=== PATIENT | male | born 1955 | race Caucasian/White ===

== ENCOUNTER 2018-12-18 15:38 | Inpatient (IN) | payer OTHER ==
[~2018-12-18] VITALS: Ht 172.7 cm; Wt 70.9 kg
[2018-12-18] MEDS ORDERED: LORazepam 2 MG/ML, 1ML ONE ×2 (15:44→18:10)
--- NOTE | 2018-12-18 15:49 | NUR ---
BIB [facility] FOR C/O ETOH WITHDRAWAL. LAST DRINK AT [place]. THIS AM WOKE UP W/ CP AND FULL BODY TREMORS. MONITORS APPLIED. PT PANTS SOILED W/ URINE AND STOOL. PT NOTED TO HAVE REDDENED AND EXCORIATED PERINEAL AREA. SHYLA CARE PERFORMED AND BARRIER CREAM APPLIED. ERP NOTIFIED. PT REPOSITIONED ON [facility]. WARM BLANKET PROVIDED.
[2018-12-18] MEDS ORDERED: LORazepam 2 MG/ML, 1ML IVPush ONE (16:00)
[2018-12-18] MEDS ORDERED: LORazepam 2 MG/ML, 1ML IVPush PRN (16:00)
[2018-12-18] MEDS ORDERED: SODIUM CHLORIDE 0.9% 1,000ML IVBOLUS ONE (16:00)
[2018-12-18] MEDS ORDERED: SODIUM CHLORIDE FLUSH 10ML SYR IVF ONE (16:00)
[2018-12-18] MEDS ORDERED: CEFAZOLIN PMX 1GM/50ML 50 ML IV ONE (16:00)
[2018-12-18] MEDS ORDERED: PLEASE ENTER HEIGHT AND WEIGHT MC SCH (16:00)
[2018-12-18] MEDS ORDERED: PLEASE ENTER ALLERGIES MC SCH (16:00)
[2018-12-18] MEDS ORDERED: CLONIDINE PO (16:02)
[2018-12-18] MEDS ORDERED: STATIN MED PEG (16:02)
[2018-12-18] MEDS ORDERED: METOPROL PO (16:02)
[2018-12-18] MEDS ORDERED: ASPI-515 PO (16:02)
[2018-12-18] MEDS ORDERED: CEFAZOLIN PMX 1GM/50ML 50 ML ONE (16:16)
--- NOTE | 2018-12-18 16:19 | NUR ---
YELLOW SLIP SENT TO PHARMACY FOR MEDICATIONS.
[2018-12-18 16:27] LABS: INTERNATIONAL NORMALIZED RATIO 1.02 (0.93-1.1); PROTHROMBIN TIME 10.7 Seconds (9.6-11.5)
--- NOTE | 2018-12-18 16:27 | NUR ---
PT ATTEMPTED TO PROVIDE UA SAMPLE AND WAS UNABLE TO DO SO.
[2018-12-18 16:30] LABS: ALANINE AMINOTRANSFERASE 36 U/L (12-78); ALBUMIN 3.1 g/dL (3.4-5.0); ANION GAP 10 mmol/L (5-15); CHLORIDE 112 mmol/L (98-107)
[2018-12-18] MEDS ORDERED: MAGNESIUM SULFATE 1 GM, THIAMINE 100 MG, FOLIC ACID 1 MG, MVI ADULT 10 ML in SODIUM CHL... IV ONE (16:30)
[2018-12-18 16:32] LABS: ALKALINE PHOSPHATASE 160 U/L (45-117); BILIRUBIN,TOTAL 0.8 mg/dL (0.2-1.0); CREATININE 1.13 mg/dL (0.7-1.3); TOTAL PROTEIN 6.1 g/dL (6.4-8.2)
[2018-12-18 16:34] LABS: ACETONE, SERUM Negative (Negative)
--- NOTE | 2018-12-18 16:43 | NUR ---
PT LESS SHAKY. RESTING ON [facility] [employer].
[2018-12-18] MEDS: ERYTHROMYCIN OPHTH 0.5%, 1GM EACHEYE SCH ×2 (17:32→23:26)
[2018-12-18] MEDS: KETOCONAZOLE CRM 2%, 15GM TP SCH (17:32)
--- NOTE | 2018-12-18 17:33 | NUR ---
PT RESTING ON [place]. [place]SE[place]. VSS. UA COLLECTED, LABELED, AND SENT TO LAB.
[2018-12-18 17:54] LABS: MICROSCOPIC AUTO
[2018-12-18 17:58] LABS: CULTURE INDICATED? NO
[2018-12-18 18:03] LABS: AMPHETAMINE SCREEN, URINE Negative (Negative); BARBITURATE SCREEN, URINE Negative (Negative); BENZODIAZEPINE SCREEN, URINE Positive (Negative); CANNABINOID SCREEN, URINE Negative (Negative); COCAINE SCREEN, URINE Negative (Negative); METHADONE SCREEN, URINE Negative (Negative); OPIATE SCREEN, URINE Negative (Negative)
[2018-12-18 18:40] LABS: MEAN CORPUSCULAR HEMOGLOBIN 33.6 pg (27.5-34.5); MEAN CORPUSCULAR HGB CONC 34.9 g/dL (33.2-36.2); MEAN CORPUSCULAR VOLUME 96.2 fL (81-97); RED BLOOD COUNT 4.09 x10^6/uL (4.38-5.82)
[2018-12-18 18:45] LABS: BASOPHILS # (AUTO) 0.01 x10^3/uL (0-0.1); BASOPHILS % (AUTO) 0 % (0-1); EOSINOPHILS % (AUTO) 0 % (1-7); LYMPHOCYTES % (AUTO) 5 % (22-44); MD SCAN; MEAN PLATELET VOLUME 7.2 fL (7.4-10.4); MONOCYTES # (AUTO) 0.58 x10^3/uL (0.2-0.8); MONOCYTES % (AUTO) 15 % (2-9); NEUTROPHILS % (AUTO) 80 % (42-75)
[2018-12-18] MEDS ORDERED: METOPROLOL 1 MG/ML, 5ML ONE (18:52)
--- NOTE | 2018-12-18 18:54 | NUR ---
PT HR NOTED TO INCREASE TO 127-130. ERP NOTIFIED. NEW ORDERS FOR METOPROLOL. IF HR DECREASES RECHECK EKG.
[2018-12-18 18:59] LABS: PLATELET COUNT 46 x10^3/uL (130-400)
[2018-12-18 19:00] LABS: HEMOGRAM NOTE RECHECKED
[2018-12-18] MEDS ORDERED: METOPROLOL 1 MG/ML, 5ML IVPush ONE (19:00)
--- NOTE | 2018-12-18 19:16 | NUR ---
REPORT GIVEN TO NIKOLAI TELLES RN.
--- NOTE | 2018-12-18 20:24 | NUR ---
REPORT GIVEN TO MANE OLSON
[2018-12-18] MEDS ORDERED: ONDANSETRON 2MG/ML, 2ML IVPush PRN (20:30)
[2018-12-18] MEDS ORDERED: HALOPERIDOL 5 MG/ML IVPush PRN (20:30)
[2018-12-18] MEDS ORDERED: POLYETHYLENE GLYCOL 17 GM PACKET PO PRN (20:30)
[2018-12-18] MEDS ORDERED: CEFTRIAXONE PMX 2GM/50ML 50 ML IV SCH (21:30)
[2018-12-18] MEDS: DOXYCYCLINE 100MG TABLET PO SCH (23:12)
[2018-12-18] MEDS: LORazepam 1MG TABLET PO PRN (23:12)
[2018-12-18] MEDS: METOPROLOL TARTRATE 25 MG TABLET PO SCH (23:12)
[2018-12-18] MEDS: NYSTATIN TOPICAL POWDER 15GM TP SCH (23:26)
[2018-12-19] MEDS: LORazepam 1MG TABLET PO PRN ×5 (01:10→10:55)
[2018-12-19 01:28] VITALS: BP 146/93
[2018-12-19] MEDS: KETOCONAZOLE MC SCH ×2 (05:30→11:42)
[2018-12-19] MEDS: ERYTHROMYCIN MC SCH ×2 (05:30→11:42)
[2018-12-19] MEDS: METOPROLOL TARTRATE 25 MG TABLET PO SCH (05:36)
[2018-12-19] MEDS ORDERED: SODIUM CHLORIDE 0.9% 1,000 ML IV SCH (07:30)
[2018-12-19] MEDS ORDERED: POTASSIUM CHLORIDE 20 MEQ, MAGNESIUM SULFATE 1 GM, THIAMINE 200 MG, FOLIC ACID 1 MG, MV... IV SCH (07:30)
[2018-12-19 07:54] LABS: ALANINE AMINOTRANSFERASE 36 U/L (12-78); ANION GAP 6 mmol/L (5-15); CALCIUM 8.3 mg/dL (8.5-10.1); CHLORIDE 109 mmol/L (98-107); CREATININE 0.69 mg/dL (0.7-1.3)
[2018-12-19 07:56] LABS: ALKALINE PHOSPHATASE 150 U/L (45-117); BILIRUBIN,TOTAL 1.2 mg/dL (0.2-1.0); TOTAL PROTEIN 6.1 g/dL (6.4-8.2)
[2018-12-19 07:59] LABS: MEAN CORPUSCULAR HEMOGLOBIN 32.8 pg (27.5-34.5); MEAN CORPUSCULAR HGB CONC 34.1 g/dL (33.2-36.2); MEAN CORPUSCULAR VOLUME 96.2 fL (81-97); RED BLOOD COUNT 4.16 x10^6/uL (4.38-5.82); RED CELL DISTRIBUTION WIDTH 14.2 % (9.4-14.8)
[2018-12-19 08:00] VITALS: BP 137/97
[2018-12-19] MEDS ORDERED: LORazepam 0.5MG TABLET PO PRN (08:00)
[2018-12-19] MEDS ORDERED: LORazepam 1MG TABLET PO PRN ×3 (08:00)
[2018-12-19 08:26] LABS: BASOPHILS # (AUTO) 0.02 x10^3/uL (0-0.1); BASOPHILS % (AUTO) 1 % (0-1); EOSINOPHILS # (AUTO) 0.03 x10^3/uL (0-0.4); EOSINOPHILS % (AUTO) 1 % (1-7); LYMPHOCYTES % (AUTO) 26 % (22-44); MD SCAN; MEAN PLATELET VOLUME 7.6 fL (7.4-10.4); MONOCYTES # (AUTO) 0.47 x10^3/uL (0.2-0.8); MONOCYTES % (AUTO) 17 % (2-9); NEUTROPHILS # (AUTO) 1.52 x10^3/uL (1.8-6.8); NEUTROPHILS % (AUTO) 56 % (42-75)
[2018-12-19 08:29] LABS: PLATELET COUNT 44 x10^3/uL (130-400)
[2018-12-19] MEDS: DOXYCYCLINE 100MG TABLET PO SCH (08:42)
[2018-12-19] MEDS: ERYTHROMYCIN OPHTH 0.5%, 1GM EACHEYE SCH (08:51)
[2018-12-19] MEDS: NYSTATIN TOPICAL POWDER 15GM TP SCH ×3 (08:51→21:48)
[2018-12-19] MEDS ORDERED: CHLORDIAZEPOXIDE 10 MG CAPSULE PO SCH (09:00)
[2018-12-19] MEDS: KETOCONAZOLE CRM 2%, 15GM TP SCH (11:00)
[2018-12-19] MEDS: LORazepam 2 MG/ML, 1ML IV PRN ×5 (12:45→14:36)
[2018-12-19] MEDS ORDERED: LORazepam 2 MG/ML, 1ML ONE ×2 (13:00→14:52)
[2018-12-19] MEDS ORDERED: LORazepam 2 MG/ML, 1ML IV PRN ×3 (13:00)
[2018-12-19] MEDS ORDERED: SODIUM CHLORIDE 0.9% IV ONE (15:00)
[2018-12-19] MEDS ORDERED: PHENOBARBITAL ETOH DETOX PER PHARMACY MC PRN (15:00)
[2018-12-19] MEDS ORDERED: LORazepam 2 MG/ML, 1ML IVPush ONE ×2 (15:00→15:30)
[2018-12-19] MEDS ORDERED: PHENOBARBITAL SODIUM IV ONE (15:00)
[2018-12-19] MEDS ORDERED: ADENOSINE 6 MG/2 ML ONE (15:48)
[2018-12-19] MEDS ORDERED: ADENOSINE 6 MG/2 ML IVPush ONE (15:50)
[2018-12-19] MEDS ORDERED: DEXTROSE 50%, 50ML SYRINGE IVPush PRN ×2 (16:00→20:00)
[2018-12-19] MEDS ORDERED: GLUCAGON 1 MG IM PRN ×2 (16:00→20:00)
[2018-12-19] MEDS ORDERED: DEXTROSE 4 GM TAB.CHEW PO PRN ×2 (16:00→20:00)
[2018-12-19] MEDS: SODIUM CHLORIDE 0.9% 1,000 ML IV SCH ×2 (16:03→20:05)
[2018-12-19] MEDS: PIPERACILLIN/TAZO/PMX 3.375GM 50 ML IV SCH ×2 (16:03→21:13)
[2018-12-19 16:11] LABS: ALBUMIN 2.7 g/dL (3.4-5.0); ANION GAP 8 mmol/L (5-15); CHLORIDE 110 mmol/L (98-107); CREATININE 0.76 mg/dL (0.7-1.3)
[2018-12-19 16:15] LABS: ALKALINE PHOSPHATASE 129 U/L (45-117); TROPONIN I 0.016 ng/mL (0.000-0.045)
[2018-12-19 16:27] LABS: MD YES; MEAN CORPUSCULAR HEMOGLOBIN 33.4 pg (27.5-34.5); MEAN CORPUSCULAR HGB CONC 34.8 g/dL (33.2-36.2); MEAN CORPUSCULAR VOLUME 96.1 fL (81-97); MEAN PLATELET VOLUME 7.9 fL (7.4-10.4); RED BLOOD COUNT 4.02 x10^6/uL (4.38-5.82); RED CELL DISTRIBUTION WIDTH 13.9 % (9.4-14.8)
[2018-12-19 16:32] LABS: PLATELET COUNT 46 x10^3/uL (130-400)
[2018-12-19 17:16] LABS: BAND#(MANUAL) 0.19 x10^3/uL; BANDS%(MANUAL) 5 % (0-7); EOS#(MANUAL) 0.04 x10^3/uL (0.0-0.4); EOS% (MANUAL) 1 % (1-7); LYMPHS% (MANUAL) 8 % (22-44); MONOS#(MANUAL) 0.38 x10^3/uL (0.3-2.7); MONOS% (MANUAL) 10 % (2-9); SEG#(MANUAL) 2.89 x10^3/uL (1.8-6.8); SEGS% (MANUAL) 76 % (42-75)
[2018-12-19 17:19] LABS: <PLATELET ESTIMATE> DECREASED; <RBC MORPHOLOGY> NORMAL
[2018-12-19 17:20] LABS: <PLT MORPHOLOGY> NORMAL PLT MORPH
[2018-12-19 20:09] LABS: CULTURE INDICATED? NO; MICROSCOPIC AUTO
[2018-12-19] MEDS: INSULIN LISPRO 100 UNITS/ML, PEN SQ-INSULIN SCH (21:00)
[2018-12-19] MEDS ORDERED: SODIUM CHLORIDE FLUSH 10ML SYR IVF SCH (21:00)
[2018-12-19] MEDS: PHENOBARBITAL SODIUM 65 MG/ML, 1ML IM SCH (21:17)
[2018-12-19] MEDS: SODIUM CHLORIDE FLUSH 10ML SYR IVF SCH (21:48)
[2018-12-19] MEDS: hydrALAzine 20 MG/ML, 1ML IVPush PRN (23:53)
[2018-12-20] MEDS: DEXMEDETOMIDINE 200 MCG in SODIUM CHLORIDE 0.9% 48 ML IV PRN ×5 (00:22→20:48)
[2018-12-20] MEDS: PIPERACILLIN/TAZO/PMX 3.375GM 50 ML IV SCH ×4 (02:28→20:15)
[2018-12-20] MEDS: INSULIN LISPRO 100 UNITS/ML, PEN SQ-INSULIN SCH ×2 (03:00→09:01)
[2018-12-20 04:36] LABS: MEAN CORPUSCULAR HEMOGLOBIN 33.5 pg (27.5-34.5); MEAN CORPUSCULAR HGB CONC 34.5 g/dL (33.2-36.2); MEAN CORPUSCULAR VOLUME 97.1 fL (81-97); MEAN PLATELET VOLUME 7.9 fL (7.4-10.4); RED BLOOD COUNT 3.77 x10^6/uL (4.38-5.82); RED CELL DISTRIBUTION WIDTH 13.8 % (9.4-14.8)
[2018-12-20 04:44] LABS: ALBUMIN 2.6 g/dL (3.4-5.0); ANION GAP 9 mmol/L (5-15); CALCIUM 7.9 mg/dL (8.5-10.1); CHLORIDE 113 mmol/L (98-107)
[2018-12-20 04:47] LABS: ALANINE AMINOTRANSFERASE 32 U/L (12-78); ALKALINE PHOSPHATASE 112 U/L (45-117); BILIRUBIN,TOTAL 1.2 mg/dL (0.2-1.0); CREATININE 0.55 mg/dL (0.7-1.3); TOTAL PROTEIN 5.1 g/dL (6.4-8.2)
[2018-12-20 04:52] VITALS: BP 120/85
[2018-12-20 04:57] LABS: PLATELET COUNT 47 x10^3/uL (130-400)
[2018-12-20] MEDS: SODIUM CHLORIDE 0.9% 1,000 ML IV SCH ×2 (05:14→20:15)
[2018-12-20 05:43] LABS: BASOPHILS # (AUTO) 0.02 x10^3/uL (0-0.1); BASOPHILS % (AUTO) 1 % (0-1); EOSINOPHILS # (AUTO) 0.03 x10^3/uL (0-0.4); EOSINOPHILS % (AUTO) 1 % (1-7); LYMPHOCYTES # (AUTO) 0.63 x10^3/uL (1-3.4); LYMPHOCYTES % (AUTO) 22 % (22-44); MD SCAN; MONOCYTES % (AUTO) 14 % (2-9); NEUTROPHILS # (AUTO) 1.81 x10^3/uL (1.8-6.8); NEUTROPHILS % (AUTO) 63 % (42-75)
[2018-12-20] MEDS ORDERED: SODIUM CHLORIDE 0.9% 1,000 ML IV SCH (07:30)
[2018-12-20] MEDS ORDERED: POTASSIUM CHLORIDE 40 MEQ in SODIUM CHLORIDE 0.9% 500 ML IV ONE (08:00)
[2018-12-20] MEDS: PHENOBARBITAL SODIUM 65 MG/ML, 1ML IM SCH (08:48)
[2018-12-20] MEDS: SODIUM CHLORIDE FLUSH 10ML SYR IVF SCH ×2 (08:49→20:28)
[2018-12-20] MEDS: NYSTATIN TOPICAL POWDER 15GM TP SCH ×3 (09:02→20:28)
[2018-12-20] MEDS: MVI ADULT 10 ML, FOLIC ACID 1 MG in D5%-0.45% NACL 1,000 ML IV SCH (09:41)
[2018-12-20] MEDS: THIAMINE 100 MG in SODIUM CHLORIDE 0.9% 50 ML IV SCH (09:41)
--- NOTE | 2018-12-20 11:48 | NUR ---
TF GOAL: PROMOTE @ 75ML/HR
[2018-12-20] MEDS: hydrALAzine 20 MG/ML, 1ML IVPush PRN (13:53)
[2018-12-20] MEDS: PHENOBARBITAL 20 MG/5 ML ORAL SOL PO SCH (20:28)
[2018-12-20] MEDS ORDERED: ACETAMINOPHEN 325 MG TABLET ONE (22:59)
[2018-12-20] MEDS: ACETAMINOPHEN 325 MG TABLET PO PRN (23:00)
[2018-12-21] MEDS: DEXMEDETOMIDINE 200 MCG in SODIUM CHLORIDE 0.9% 48 ML IV PRN ×4 (01:56→19:54)
[2018-12-21] MEDS: PIPERACILLIN/TAZO/PMX 3.375GM 50 ML IV SCH (02:16)
[2018-12-21 04:12] VITALS: BP 122/78
[2018-12-21 04:27] LABS: MEAN CORPUSCULAR HGB CONC 35.3 g/dL (33.2-36.2); MEAN CORPUSCULAR VOLUME 96.1 fL (81-97); MEAN PLATELET VOLUME 7.4 fL (7.4-10.4); PLATELET COUNT 50 x10^3/uL (130-400); RED BLOOD COUNT 3.76 x10^6/uL (4.38-5.82); RED CELL DISTRIBUTION WIDTH 13.7 % (9.4-14.8)
[2018-12-21 04:35] LABS: ALANINE AMINOTRANSFERASE 34 U/L (12-78); ALBUMIN 2.5 g/dL (3.4-5.0); ANION GAP 6 mmol/L (5-15); CALCIUM 7.8 mg/dL (8.5-10.1); CHLORIDE 108 mmol/L (98-107)
[2018-12-21 04:38] LABS: ALKALINE PHOSPHATASE 112 U/L (45-117); BILIRUBIN,TOTAL 1.1 mg/dL (0.2-1.0); CREATININE 0.62 mg/dL (0.7-1.3)
[2018-12-21] MEDS: SODIUM CHLORIDE 0.9% 1,000 ML IV SCH ×2 (05:01→21:43)
[2018-12-21 05:05] LABS: BASOPHILS # (AUTO) 0.01 x10^3/uL (0-0.1); BASOPHILS % (AUTO) 1 % (0-1); EOSINOPHILS # (AUTO) 0.04 x10^3/uL (0-0.4); EOSINOPHILS % (AUTO) 2 % (1-7); LYMPHOCYTES # (AUTO) 0.52 x10^3/uL (1-3.4); LYMPHOCYTES % (AUTO) 22 % (22-44); MD SCAN; MONOCYTES # (AUTO) 0.33 x10^3/uL (0.2-0.8); MONOCYTES % (AUTO) 14 % (2-9); NEUTROPHILS # (AUTO) 1.47 x10^3/uL (1.8-6.8); NEUTROPHILS % (AUTO) 62 % (42-75)
[2018-12-21] MEDS: THIAMINE 100 MG in SODIUM CHLORIDE 0.9% 50 ML IV SCH (08:26)
[2018-12-21] MEDS: SODIUM CHLORIDE FLUSH 10ML SYR IVF SCH ×2 (08:26→21:43)
[2018-12-21] MEDS: PHENOBARBITAL 20 MG/5 ML ORAL SOL PO SCH ×2 (08:26→21:43)
[2018-12-21] MEDS: NYSTATIN TOPICAL POWDER 15GM TP SCH ×3 (08:27→21:43)
[2018-12-21] MEDS: MVI ADULT 10 ML, FOLIC ACID 1 MG in D5%-0.45% NACL 1,000 ML IV SCH (09:37)
[2018-12-21] MEDS ORDERED: MAGNESIUM SULFATE PMX 2GM/50ML 50 ML ONE (10:27)
[2018-12-21] MEDS ORDERED: POTASSIUM CHLORIDE 20 MEQ TAB.ER.PRT ONE (10:28)
[2018-12-21] MEDS: METOPROLOL TARTRATE 25 MG TABLET PO SCH ×2 (10:29→20:44)
[2018-12-21] MEDS ORDERED: MAGNESIUM SULFATE PMX 2GM/50ML 50 ML IV ONE (10:30)
[2018-12-21] MEDS: POTASSIUM CHLORIDE 20 MEQ TAB.ER.PRT PO SCH ×3 (10:30→21:44)
[2018-12-21] MEDS: AMPICILLIN/SULBACTAM 3 GM in SODIUM CHLORIDE 0.9% 100 ML IV SCH ×3 (12:26→23:23)
[2018-12-21] MEDS: ACETAMINOPHEN 325 MG TABLET PO PRN (14:28)
[2018-12-22] MEDS: DEXMEDETOMIDINE 200 MCG in SODIUM CHLORIDE 0.9% 48 ML IV PRN ×6 (00:50→22:25)
[2018-12-22 04:00] VITALS: BP 148/97
[2018-12-22 04:17] LABS: MEAN CORPUSCULAR HEMOGLOBIN 33.9 pg (27.5-34.5); MEAN CORPUSCULAR HGB CONC 34.4 g/dL (33.2-36.2); MEAN CORPUSCULAR VOLUME 98.4 fL (81-97); RED BLOOD COUNT 3.73 x10^6/uL (4.38-5.82)
[2018-12-22 04:23] LABS: ALBUMIN 2.6 g/dL (3.4-5.0); CALCIUM 7.7 mg/dL (8.5-10.1); CHLORIDE 112 mmol/L (98-107)
[2018-12-22 04:29] LABS: ALANINE AMINOTRANSFERASE 46 U/L (12-78); ALKALINE PHOSPHATASE 119 U/L (45-117); ANION GAP 8 mmol/L (5-15); BILIRUBIN,TOTAL 0.6 mg/dL (0.2-1.0); CREATININE 0.63 mg/dL (0.7-1.3); TOTAL PROTEIN 5.3 g/dL (6.4-8.2)
[2018-12-22 04:36] LABS: MEAN PLATELET VOLUME 7.4 fL (7.4-10.4); PLATELET COUNT 59 x10^3/uL (130-400)
[2018-12-22 04:37] LABS: MD YES
[2018-12-22 04:41] LABS: BAND#(MANUAL) 0.05 x10^3/uL; BANDS%(MANUAL) 3 % (0-7); LYMPH#(MANUAL) 0.51 x10^3/uL (1-3.4); LYMPHS% (MANUAL) 32 % (22-44); MONOS#(MANUAL) 0.18 x10^3/uL (0.3-2.7); MONOS% (MANUAL) 11 % (2-9); SEG#(MANUAL) 0.86 x10^3/uL (1.8-6.8); SEGS% (MANUAL) 54 % (42-75)
[2018-12-22 04:42] LABS: <PLATELET ESTIMATE> DECREASED; <PLT MORPHOLOGY> NORMAL PLT MORPH; <RBC MORPHOLOGY> NORMAL
[2018-12-22] MEDS: AMPICILLIN/SULBACTAM 3 GM in SODIUM CHLORIDE 0.9% 100 ML IV SCH ×4 (05:20→22:21)
[2018-12-22] MEDS: METOPROLOL TARTRATE 25 MG TABLET PO SCH ×2 (05:22→16:21)
[2018-12-22] MEDS: NYSTATIN TOPICAL POWDER 15GM TP SCH ×3 (07:27→20:01)
[2018-12-22] MEDS: PHENOBARBITAL 20 MG/5 ML ORAL SOL PO SCH ×2 (07:31→20:00)
[2018-12-22] MEDS: MAGNESIUM OXIDE 400 MG TABLET PO SCH (07:31)
[2018-12-22] MEDS: THIAMINE 100MG TABLET PO SCH (07:31)
[2018-12-22] MEDS: FOLIC ACID 1 MG TABLET PO SCH (07:32)
[2018-12-22] MEDS: SODIUM CHLORIDE FLUSH 10ML SYR IVF SCH ×2 (07:32→20:01)
[2018-12-22] MEDS ORDERED: FOLIC ACID 1 MG TABLET PO SCH (09:00)
[2018-12-22] MEDS ORDERED: CHLORDIAZEPOXIDE 25 MG CAPSULE ONE (09:52)
[2018-12-22] MEDS: CHLORDIAZEPOXIDE 25 MG CAPSULE PO SCH ×3 (10:10→20:01)
[2018-12-22] MEDS: SODIUM CHLORIDE 0.9% 1,000 ML IV SCH (13:26)
[2018-12-22] MEDS: ACETAMINOPHEN 325 MG TABLET PO PRN (20:00)
[2018-12-23] MEDS: SODIUM CHLORIDE 0.9% 1,000 ML IV SCH (03:25)
[2018-12-23 04:00] VITALS: BP 147/101
[2018-12-23 05:01] LABS: MEAN CORPUSCULAR HEMOGLOBIN 32.8 pg (27.5-34.5); MEAN CORPUSCULAR VOLUME 96.6 fL (81-97); MEAN PLATELET VOLUME 7.4 fL (7.4-10.4); PLATELET COUNT 69 x10^3/uL (130-400); RED BLOOD COUNT 4.21 x10^6/uL (4.38-5.82); RED CELL DISTRIBUTION WIDTH 13.6 % (9.4-14.8)
[2018-12-23 05:02] LABS: MD YES
[2018-12-23 05:04] LABS: ANION GAP 7 mmol/L (5-15); CALCIUM 8.5 mg/dL (8.5-10.1); CHLORIDE 109 mmol/L (98-107); CREATININE 0.67 mg/dL (0.7-1.3)
[2018-12-23] MEDS: ACETAMINOPHEN 325 MG TABLET PO PRN (05:32)
[2018-12-23] MEDS: AMPICILLIN/SULBACTAM 3 GM in SODIUM CHLORIDE 0.9% 100 ML IV SCH ×4 (05:33→23:19)
[2018-12-23] MEDS: METOPROLOL TARTRATE 25 MG TABLET PO SCH ×3 (05:33→21:57)
[2018-12-23 06:02] LABS: <PLATELET ESTIMATE> DECREASED; <PLT MORPHOLOGY> NORMAL PLT MORPH; <RBC MORPHOLOGY> NORMAL; BAND#(MANUAL) 0.02 x10^3/uL; BANDS%(MANUAL) 1 % (0-7); EOS#(MANUAL) 0.02 x10^3/uL (0.0-0.4); EOS% (MANUAL) 1 % (1-7); LYMPH#(MANUAL) 0.84 x10^3/uL (1-3.4); LYMPHS% (MANUAL) 35 % (22-44); MONOS#(MANUAL) 0.36 x10^3/uL (0.3-2.7); MONOS% (MANUAL) 15 % (2-9); SEG#(MANUAL) 1.15 x10^3/uL (1.8-6.8); SEGS% (MANUAL) 48 % (42-75)
[2018-12-23] MEDS: FOLIC ACID 1 MG TABLET PO SCH (08:40)
[2018-12-23] MEDS: MAGNESIUM OXIDE 400 MG TABLET PO SCH (08:40)
[2018-12-23] MEDS: SODIUM CHLORIDE FLUSH 10ML SYR IVF SCH ×2 (08:40→21:00)
[2018-12-23] MEDS: THIAMINE 100MG TABLET PO SCH (08:40)
[2018-12-23] MEDS: PHENOBARBITAL 20 MG/5 ML ORAL SOL PO SCH ×2 (08:41→21:57)
[2018-12-23] MEDS: NYSTATIN TOPICAL POWDER 15GM TP SCH ×3 (08:41→21:58)
[2018-12-23 11:26] VITALS: BP 130/92
[2018-12-23] MEDS ORDERED: THIA100T27 PO (13:00)
[2018-12-23] MEDS ORDERED: ENAL10TA PO (13:00)
[2018-12-23] MEDS ORDERED: CHOL2000 PO (13:00)
[2018-12-23] MEDS ORDERED: LEVO25TA4 PO (13:00)
[2018-12-23] MEDS ORDERED: FOLI-17 PO (13:00)
[2018-12-23] MEDS ORDERED: METO-264 PO (13:00)
[2018-12-23] MEDS ORDERED: DOCU250C9 PO (13:00)
[2018-12-23] MEDS ORDERED: PANT20TA3 PO (13:00)
[2018-12-23] MEDS ORDERED: ISOS30TA8 PO (13:00)
[2018-12-23] MEDS ORDERED: PREVASTATIN PO (13:00)
[2018-12-23 13:29] VITALS: BP 129/85
[2018-12-23] MEDS ORDERED: SODIUM CHLORIDE 0.9% 1,000 ML IV SCH (15:30)
[2018-12-23 17:14] VITALS: BP 130/93
[2018-12-23] MEDS ORDERED: POTASSIUM CHLORIDE 20 MEQ TAB.ER.PRT PO ONE (18:00)
[2018-12-23 19:05] VITALS: BP 97/65
[2018-12-24 01:48] VITALS: BP 117/80
[2018-12-24] MEDS: AMPICILLIN/SULBACTAM 3 GM in SODIUM CHLORIDE 0.9% 100 ML IV SCH ×4 (05:37→23:06)
[2018-12-24 06:29] LABS: ALBUMIN 2.5 g/dL (3.4-5.0); ANION GAP 5 mmol/L (5-15); CALCIUM 8.3 mg/dL (8.5-10.1); CHLORIDE 108 mmol/L (98-107)
[2018-12-24 06:33] LABS: ALANINE AMINOTRANSFERASE 48 U/L (12-78); ALKALINE PHOSPHATASE 109 U/L (45-117); BILIRUBIN,TOTAL 0.5 mg/dL (0.2-1.0); CREATININE 0.57 mg/dL (0.7-1.3); TOTAL PROTEIN 5.7 g/dL (6.4-8.2)
[2018-12-24 07:00] LABS: MEAN CORPUSCULAR HEMOGLOBIN 33.4 pg (27.5-34.5); MEAN CORPUSCULAR VOLUME 95.4 fL (81-97); RED BLOOD COUNT 3.84 x10^6/uL (4.38-5.82); RED CELL DISTRIBUTION WIDTH 13.7 % (9.4-14.8)
[2018-12-24 07:12] LABS: MD YES; MEAN PLATELET VOLUME 8.2 fL (7.4-10.4); PLATELET COUNT 92 x10^3/uL (130-400)
[2018-12-24 07:17] LABS: BAND#(MANUAL) 0.04 x10^3/uL; BANDS%(MANUAL) 2 % (0-7); LYMPH#(MANUAL) 0.58 x10^3/uL (1-3.4); LYMPHS% (MANUAL) 29 % (22-44); NRBC % (MANUAL) 1 % (0-1)
[2018-12-24 07:18] LABS: <PLATELET ESTIMATE> DECREASED; <PLT MORPHOLOGY> NORMAL PLT MORPH; <RBC MORPHOLOGY> NORMAL; EOS#(MANUAL) 0.04 x10^3/uL (0.0-0.4); EOS% (MANUAL) 2 % (1-7); MONOS#(MANUAL) 0.48 x10^3/uL (0.3-2.7); MONOS% (MANUAL) 24 % (2-9); SEG#(MANUAL) 0.86 x10^3/uL (1.8-6.8); SEGS% (MANUAL) 43 % (42-75)
[2018-12-24 07:52] VITALS: BP 151/101
[2018-12-24] MEDS: SODIUM CHLORIDE FLUSH 10ML SYR IVF SCH ×2 (08:20→20:23)
[2018-12-24] MEDS: PHENOBARBITAL 20 MG/5 ML ORAL SOL PO SCH ×2 (08:20→20:22)
[2018-12-24] MEDS: LEVOTHYROXINE 25 MCG TABLET PO SCH (08:20)
[2018-12-24] MEDS: FOLIC ACID 1 MG TABLET PO SCH (08:20)
[2018-12-24] MEDS: MAGNESIUM OXIDE 400 MG TABLET PO SCH (08:20)
[2018-12-24] MEDS: METOPROLOL TARTRATE 25 MG TABLET PO SCH ×3 (08:20→20:22)
[2018-12-24] MEDS: THIAMINE 100MG TABLET PO SCH (08:20)
[2018-12-24] MEDS: NYSTATIN TOPICAL POWDER 15GM TP SCH ×3 (08:24→20:21)
[2018-12-24 13:02] VITALS: BP 102/72
[2018-12-24 16:27] VITALS: BP 118/80
[2018-12-24] MEDS ORDERED: POTASSIUM CHLORIDE 20 MEQ TAB.ER.PRT PO ONE (18:00)
[2018-12-24 19:58] VITALS: BP 111/78
[2018-12-24] MEDS: DIPHENHYDRAMINE 50 MG CAPSULE PO PRN (23:05)
[2018-12-25 00:51] VITALS: BP 135/89
[2018-12-25] MEDS: AMPICILLIN/SULBACTAM 3 GM in SODIUM CHLORIDE 0.9% 100 ML IV SCH ×4 (04:54→23:03)
[2018-12-25] MEDS ORDERED: LORazepam 2 MG/ML, 1ML IVPush ONE (05:00)
[2018-12-25] MEDS: LEVOTHYROXINE 25 MCG TABLET PO SCH (05:10)
[2018-12-25 06:36] VITALS: BP 128/90
[2018-12-25 08:18] LABS: ANION GAP 5 mmol/L (5-15); CALCIUM 8.5 mg/dL (8.5-10.1); CHLORIDE 108 mmol/L (98-107)
[2018-12-25 08:19] LABS: CREATININE 0.73 mg/dL (0.7-1.3)
[2018-12-25 08:21] LABS: MEAN CORPUSCULAR HEMOGLOBIN 32.3 pg (27.5-34.5); MEAN CORPUSCULAR HGB CONC 33.6 g/dL (33.2-36.2); MEAN CORPUSCULAR VOLUME 96.3 fL (81-97); MEAN PLATELET VOLUME 8.3 fL (7.4-10.4); PLATELET COUNT 163 x10^3/uL (130-400); RED BLOOD COUNT 4.07 x10^6/uL (4.38-5.82); RED CELL DISTRIBUTION WIDTH 13.9 % (9.4-14.8)
[2018-12-25 08:24] LABS: ALBUMIN 2.9 g/dL (3.4-5.0); BILIRUBIN, DIRECT 0.2 mg/dL (0.1-0.2)
[2018-12-25 08:27] LABS: BILIRUBIN,INDIRECT 0.4 mg/dL (0.0-2.0); BILIRUBIN,TOTAL 0.6 mg/dL (0.2-1.0); TOTAL PROTEIN 6.2 g/dL (6.4-8.2)
[2018-12-25] MEDS: NYSTATIN TOPICAL POWDER 15GM TP SCH ×3 (08:39→21:28)
[2018-12-25] MEDS: PHENOBARBITAL 20 MG/5 ML ORAL SOL PO SCH (08:39)
[2018-12-25] MEDS: MAGNESIUM OXIDE 400 MG TABLET PO SCH (08:40)
[2018-12-25] MEDS: FOLIC ACID 1 MG TABLET PO SCH (08:40)
[2018-12-25] MEDS: METOPROLOL TARTRATE 25 MG TABLET PO SCH ×3 (08:40→21:27)
[2018-12-25] MEDS: THIAMINE 100MG TABLET PO SCH (08:40)
[2018-12-25] MEDS: SODIUM CHLORIDE FLUSH 10ML SYR IVF SCH ×2 (08:41→21:29)
[2018-12-25 09:42] LABS: MD YES
[2018-12-25 10:17] LABS: BASOS#(MANUAL) 0.03 x10^3/uL (0-0.1); BASOS% (MANUAL) 1 % (0-1); EOS#(MANUAL) 0.05 x10^3/uL (0.0-0.4); EOS% (MANUAL) 2 % (1-7); LYMPH#(MANUAL) 0.94 x10^3/uL (1-3.4); LYMPHS% (MANUAL) 36 % (22-44); MONOS#(MANUAL) 0.62 x10^3/uL (0.3-2.7); MONOS% (MANUAL) 24 % (2-9); SEG#(MANUAL) 0.96 x10^3/uL (1.8-6.8); SEGS% (MANUAL) 37 % (42-75)
[2018-12-25 10:25] LABS: <PLATELET ESTIMATE> ADEQUATE; LARGE PLATELETS 1+
[2018-12-25 15:09] VITALS: BP 128/61
[2018-12-25 19:32] VITALS: BP 132/65
[2018-12-25] MEDS: DIPHENHYDRAMINE 50 MG CAPSULE PO PRN (21:27)
[2018-12-25] MEDS ORDERED: LORazepam 2 MG/ML, 1ML ONE (22:58)
[2018-12-25] MEDS ORDERED: LORazepam 2 MG/ML, 1ML IVPush PRN (23:00)
[2018-12-26 02:21] VITALS: BP 127/6
[2018-12-26] MEDS: AMPICILLIN/SULBACTAM 3 GM in SODIUM CHLORIDE 0.9% 100 ML IV SCH ×2 (05:08→12:03)
[2018-12-26 07:55] VITALS: BP 118/75
[2018-12-26] MEDS: THIAMINE 100MG TABLET PO SCH (09:13)
[2018-12-26] MEDS: FOLIC ACID 1 MG TABLET PO SCH (09:13)
[2018-12-26] MEDS: MAGNESIUM OXIDE 400 MG TABLET PO SCH (09:13)
[2018-12-26] MEDS: METOPROLOL TARTRATE 25 MG TABLET PO SCH ×3 (09:13→21:43)
[2018-12-26] MEDS: LEVOTHYROXINE 25 MCG TABLET PO SCH (09:14)
[2018-12-26] MEDS: NYSTATIN TOPICAL POWDER 15GM TP SCH ×3 (09:14→21:43)
[2018-12-26] MEDS: SODIUM CHLORIDE FLUSH 10ML SYR IVF SCH ×2 (09:14→21:44)
[2018-12-26 13:13] VITALS: BP 128/68
[2018-12-26 20:01] VITALS: BP 121/71
[2018-12-26] MEDS: DIPHENHYDRAMINE 50 MG CAPSULE PO PRN (21:43)
[2018-12-27 01:27] VITALS: BP 125/63
[2018-12-27 07:29] VITALS: BP 102/67
[2018-12-27] MEDS: LEVOTHYROXINE 25 MCG TABLET PO SCH (08:04)
[2018-12-27] MEDS: FOLIC ACID 1 MG TABLET PO SCH (08:05)
[2018-12-27] MEDS: THIAMINE 100MG TABLET PO SCH (08:05)
[2018-12-27] MEDS: METOPROLOL TARTRATE 25 MG TABLET PO SCH ×3 (08:05→20:08)
[2018-12-27] MEDS: MAGNESIUM OXIDE 400 MG TABLET PO SCH (08:05)
[2018-12-27] MEDS: SODIUM CHLORIDE FLUSH 10ML SYR IVF SCH ×2 (08:06→20:08)
[2018-12-27] MEDS: NYSTATIN TOPICAL POWDER 15GM TP SCH ×3 (08:06→20:07)
[2018-12-27 09:53] LABS: ALBUMIN 2.7 g/dL (3.4-5.0); ANION GAP 8 mmol/L (5-15); CALCIUM 8.8 mg/dL (8.5-10.1); CHLORIDE 108 mmol/L (98-107)
[2018-12-27 09:56] LABS: ALANINE AMINOTRANSFERASE 47 U/L (12-78); ALKALINE PHOSPHATASE 99 U/L (45-117); BILIRUBIN,TOTAL 0.7 mg/dL (0.2-1.0); CREATININE 0.71 mg/dL (0.7-1.3); TOTAL PROTEIN 6.1 g/dL (6.4-8.2)
[2018-12-27] MEDS: ATORVASTATIN 40 MG TABLET PO SCH ×2 (11:19→20:07)
[2018-12-27] MEDS: ASPIRIN 325 MG TABLET PO SCH (11:19)
[2018-12-27 12:07] LABS: TROPONIN I < 0.015 ng/mL (0.000-0.045)
[2018-12-27 14:03] VITALS: BP 109/68
[2018-12-27 14:04] LABS: TROPONIN I < 0.015 ng/mL (0.000-0.045)
[2018-12-27] MEDS: ACETAMINOPHEN 325 MG TABLET PO PRN ×2 (14:40→20:08)
[2018-12-27 17:38] LABS: TROPONIN I < 0.015 ng/mL (0.000-0.045)
[2018-12-27 19:43] LABS: TROPONIN I < 0.015 ng/mL (0.000-0.045)
[2018-12-27 20:24] VITALS: BP 110/79
[2018-12-28] MEDS: DIPHENHYDRAMINE 50 MG CAPSULE PO PRN ×2 (01:42→22:19)
[2018-12-28 02:47] VITALS: BP 117/78
[2018-12-28 07:47] VITALS: BP 120/73
[2018-12-28] MEDS ORDERED: SODIUM CHLORIDE 0.9%, 500ML IVBOLUS ONE (08:30)
[2018-12-28] MEDS: ASPIRIN 325 MG TABLET PO SCH (08:36)
[2018-12-28] MEDS: METOPROLOL TARTRATE 25 MG TABLET PO SCH (08:37)
[2018-12-28] MEDS: THIAMINE 100MG TABLET PO SCH (08:39)
[2018-12-28] MEDS: MAGNESIUM OXIDE 400 MG TABLET PO SCH (08:40)
[2018-12-28] MEDS: FOLIC ACID 1 MG TABLET PO SCH (08:40)
[2018-12-28] MEDS: SODIUM CHLORIDE FLUSH 10ML SYR IVF SCH ×2 (08:42→21:09)
[2018-12-28] MEDS: NYSTATIN TOPICAL POWDER 15GM TP SCH ×3 (08:50→21:00)
[2018-12-28 09:01] LABS: MEAN CORPUSCULAR HEMOGLOBIN 32.2 pg (27.5-34.5); MEAN CORPUSCULAR HGB CONC 33.5 g/dL (33.2-36.2); MEAN CORPUSCULAR VOLUME 96.1 fL (81-97); PLATELET COUNT 327 x10^3/uL (130-400); RED BLOOD COUNT 4.14 x10^6/uL (4.38-5.82); RED CELL DISTRIBUTION WIDTH 13.7 % (9.4-14.8)
[2018-12-28 09:08] LABS: ALBUMIN 2.9 g/dL (3.4-5.0); ANION GAP 7 mmol/L (5-15); CALCIUM 8.7 mg/dL (8.5-10.1); CHLORIDE 108 mmol/L (98-107)
[2018-12-28 09:13] LABS: ALANINE AMINOTRANSFERASE 48 U/L (12-78); ALKALINE PHOSPHATASE 92 U/L (45-117); BILIRUBIN,TOTAL 0.4 mg/dL (0.2-1.0); CREATININE 0.68 mg/dL (0.7-1.3); TOTAL PROTEIN 6.5 g/dL (6.4-8.2)
[2018-12-28 09:35] LABS: BASOPHILS # (AUTO) 0.04 x10^3/uL (0-0.1); BASOPHILS % (AUTO) 1 % (0-1); EOSINOPHILS # (AUTO) 0.07 x10^3/uL (0-0.4); EOSINOPHILS % (AUTO) 2 % (1-7); LYMPHOCYTES # (AUTO) 0.88 x10^3/uL (1-3.4); LYMPHOCYTES % (AUTO) 23 % (22-44); MD SCAN; MONOCYTES # (AUTO) 0.32 x10^3/uL (0.2-0.8); MONOCYTES % (AUTO) 8 % (2-9); NEUTROPHILS # (AUTO) 2.58 x10^3/uL (1.8-6.8); NEUTROPHILS % (AUTO) 66 % (42-75)
[2018-12-28] MEDS: ACETAMINOPHEN 325 MG TABLET PO PRN ×3 (10:55→22:18)
[2018-12-28] MEDS: LEVOTHYROXINE 25 MCG TABLET PO SCH (10:55)
[2018-12-28 13:09] VITALS: BP 124/71
[2018-12-28] MEDS: METOPROLOL TARTRATE 50 MG TABLET PO SCH ×2 (16:06→21:09)
[2018-12-28 16:19] VITALS: BP 110/70
[2018-12-28 19:49] VITALS: BP 111/66
[2018-12-28 21:05] VITALS: BP 130/84
[2018-12-28] MEDS: ATORVASTATIN 40 MG TABLET PO SCH (21:09)
[2018-12-29 01:18] VITALS: BP 107/66
[2018-12-29] MEDS: ACETAMINOPHEN 325 MG TABLET PO PRN ×2 (03:15→11:09)
[2018-12-29 04:55] LABS: BASOPHILS # (AUTO) 0.06 x10^3/uL (0-0.1); BASOPHILS % (AUTO) 1 % (0-1); EOSINOPHILS # (AUTO) 0.08 x10^3/uL (0-0.4); EOSINOPHILS % (AUTO) 2 % (1-7); LYMPHOCYTES # (AUTO) 1.04 x10^3/uL (1-3.4); LYMPHOCYTES % (AUTO) 27 % (22-44); MD NO; MEAN CORPUSCULAR HEMOGLOBIN 32.7 pg (27.5-34.5); MEAN CORPUSCULAR HGB CONC 33.9 g/dL (33.2-36.2); MEAN CORPUSCULAR VOLUME 96.4 fL (81-97); MEAN PLATELET VOLUME 8.3 fL (7.4-10.4); MONOCYTES # (AUTO) 0.47 x10^3/uL (0.2-0.8); MONOCYTES % (AUTO) 12 % (2-9); NEUTROPHILS % (AUTO) 57 % (42-75); PLATELET COUNT 346 x10^3/uL (130-400); RED BLOOD COUNT 3.95 x10^6/uL (4.38-5.82); RED CELL DISTRIBUTION WIDTH 13.9 % (9.4-14.8)
[2018-12-29] MEDS ORDERED: MORPHINE SULFATE 4 MG/ML, 1ML IVPush ONE (05:00)
[2018-12-29 05:02] LABS: ANION GAP 5 mmol/L (5-15); CALCIUM 8.9 mg/dL (8.5-10.1); CHLORIDE 111 mmol/L (98-107)
[2018-12-29 05:03] LABS: CREATININE 0.69 mg/dL (0.7-1.3)
[2018-12-29] MEDS: ASPIRIN 325 MG TABLET PO SCH (05:13)
[2018-12-29 06:43] VITALS: BP 127/83
[2018-12-29] MEDS: LEVOTHYROXINE 25 MCG TABLET PO SCH (08:05)
[2018-12-29] MEDS: SODIUM CHLORIDE FLUSH 10ML SYR IVF SCH (08:05)
[2018-12-29] MEDS: THIAMINE 100MG TABLET PO SCH (08:05)
[2018-12-29] MEDS: METOPROLOL TARTRATE 50 MG TABLET PO SCH ×2 (08:05→16:24)
[2018-12-29] MEDS: MAGNESIUM OXIDE 400 MG TABLET PO SCH (08:05)
[2018-12-29] MEDS: NYSTATIN TOPICAL POWDER 15GM TP SCH ×2 (08:06→16:00)
[2018-12-29] MEDS: FOLIC ACID 1 MG TABLET PO SCH (08:06)
[2018-12-29] MEDS ORDERED: FOLI-17 PO (12:14)
[2018-12-29] MEDS ORDERED: METO50TA82 PO (12:14)
[2018-12-29] MEDS ORDERED: THIA100T67 PO (12:14)
[2018-12-29] MEDS ORDERED: ATOR40TA78 PO (12:14)
[2018-12-29 16:00] VITALS: BP 123/85
== END 2018-12-29 18:13 | disposition home or self-care (01) | DRG 432 ==
LOC: ED 16:33 → EDIP 20:09 → 4EST 21:19 → 4WST 12-19 03:19 → CCU 12-19 14:35 → 5SO 12-23 11:37 → 4WST 12-24 18:38
PROVIDERS: ADMIT Family Medicine; ATTEND Internal Medicine
PROC: 0T9B70Z Drainage of Bladder with Drainage Device, Via Natural or Artificial Opening (ICD-10-PCS; principal; 2018-12-19)
DX: K70.10 Alcoholic hepatitis without ascites (principal); G93.41 Metabolic encephalopathy; J69.0 Pneumonitis due to inhalation of food and vomit; L03.314 Cellulitis of groin; D61.818 Other pancytopenia; I47.1 Supraventricular tachycardia; F10.231 Alcohol dependence with withdrawal delirium; L03.116 Cellulitis of left lower limb; L03.115 Cellulitis of right lower limb; B37.2 Candidiasis of skin and nail; B35.6 Tinea cruris; D53.9 Nutritional anemia, unspecified; E16.2 Hypoglycemia, unspecified; E78.5 Hyperlipidemia, unspecified; E83.39 Other disorders of phosphorus metabolism; E83.42 Hypomagnesemia; E87.6 Hypokalemia; I10 Essential (primary) hypertension; R13.10 Dysphagia, unspecified; Z86.73 Personal history of transient ischemic attack (TIA), and cerebral infarction without residual deficits; Z79.82 Long term (current) use of aspirin; Z79.899 Other long term (current) drug therapy
CPT/HCPCS: 36415; 70450; 71045; 80048; 80053; 80076; 80307; 81001; 82010; 82040; 82607; 82962; 83605; 83690; 83735; 84075; 84100; 84443; 84484; 85025; 85610; 87040; 87081; 93005; 93306; 96361; 96365; 96375; 99291; G0378; J0153; J0295; J0690; J0696; J2543; J2560; J3411; J3475; J3480; J0360; J1630; J2060; J7030; J7040

== ENCOUNTER 2020-06-12 13:52 | Inpatient (IN) | payer OTHER ==
[~2020-06-12] VITALS: Ht 165.1 cm; Wt 67.0 kg
[~2020-06-12 13:52] MED LIST: ASPI-515 PO; ATOR40TA78 PO; CHOL2000 PO; CLONIDINE PO; DOCU250C9 PO; ENAL10TA9 PO; FOLI-17 PO; ISOS30TA8 PO; LEVO25TA4 PO; METO-264 PO; METO50TA82 PO; METOPROL PO; PANT20TA4 PO; PREVASTATIN PO; STATIN MED PEG; THIA100T27 PO; THIA100T67 PO
--- NOTE | 2020-06-12 14:10 | NUR ---
PT STATES CHEST PRESSURE STARTED 0100. PT WAS IN RECLINER ALL DAY AND THEN WHEN HE TRIED TO GET UP HE WAS TOO WEAK AND FELL AND UNABLE TO GET UP. PT CRAWLED TO DOOR AND WAITED FOR NEIGHBOR TO SEE HIM.
[2020-06-12] MEDS ORDERED: SODIUM CHLORIDE FLUSH 10ML SYR IVF ONE (14:30)
[2020-06-12] MEDS ORDERED: ASPIRIN 81 MG TABLET CHEW PO ONE (14:30)
[2020-06-12] MEDS ORDERED: SODIUM CHLORIDE 0.9% 1,000ML IVBOLUS ONE (14:30)
--- NOTE | 2020-06-12 14:46 | NUR ---
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 1 81 MG ASA AT HOME AND 243 MG FROM EMS.
[2020-06-12] MEDS ORDERED: NITROGLYCERIN SINGLE TAB 0.4 MG SL ONE ×2 (14:50→15:41)
[2020-06-12] MEDS ORDERED: LORazepam 2 MG/ML, 1ML ONE ×5 (14:51→18:24)
[2020-06-12] MEDS: NITROGLYCERIN SINGLE TAB 0.4 MG SL PRN ×2 (14:56→15:44)
[2020-06-12] MEDS: LORazepam 2 MG/ML, 1ML IVPush PRN ×4 (14:56→17:04)
--- NOTE | 2020-06-12 14:56 | NUR ---
PAIN MEDICATED FOR 66/10 CHEST PAIN. PAIN AFTER NITRO 4.
[2020-06-12 15:14] LABS: BASOPHILS % (AUTO) 1 % (0-1); EOSINOPHILS % (AUTO) 0 % (1-7); LYMPHOCYTES % (AUTO) 19 % (22-44); MEAN CORPUSCULAR HEMOGLOBIN 31.9 pg (27.5-34.5); MEAN CORPUSCULAR HGB CONC 33.8 g/dL (33.2-36.2); MEAN PLATELET VOLUME 8.1 fL (7.4-10.4); MONOCYTES % (AUTO) 10 % (2-9); NEUTROPHILS % (AUTO) 70 % (42-75); PLATELET COUNT 100 x10^3/uL (130-400); RED BLOOD COUNT 4.44 x10^6/uL (4.38-5.82); RED CELL DISTRIBUTION WIDTH 13.3 % (9.4-14.8)
[2020-06-12 15:16] LABS: MD NO
[2020-06-12 15:21] LABS: ALANINE AMINOTRANSFERASE 54 U/L (12-78); ALBUMIN 3.5 g/dL (3.4-5.0); ANION GAP 9 mmol/L (5-15); CALCIUM 8.4 mg/dL (8.5-10.1); CHLORIDE 109 mmol/L (98-107); CREATININE 0.63 mg/dL (0.7-1.3)
--- NOTE | 2020-06-12 15:22 | NUR ---
PT MEDICATED DUE TO TACHYCARDIA AND TREMORS NOTED IN UPPER EXTREMITIES. PER NOV, PT ADMINISTERED 2 DOSES OF ATIVAN
[2020-06-12 15:26] LABS: ALKALINE PHOSPHATASE 82 U/L (45-117); BILIRUBIN,TOTAL 1.5 mg/dL (0.2-1.0); TOTAL PROTEIN 6.3 g/dL (6.4-8.2); TROPONIN I < 0.015 ng/mL (0.000-0.045)
[2020-06-12 15:44] LABS: INTERNATIONAL NORMALIZED RATIO 1.03 (0.93-1.1); PROTHROMBIN TIME 10.6 Seconds (9.6-11.5)
--- NOTE | 2020-06-12 15:48 | NUR ---
PAIN MEDICATED WITH NITRO FOR 4/10 CHEST PAIN. CHEST PAIN NOW 3/10.
[2020-06-12] MEDS ORDERED: ONDANSETRON ODT 4 MG PO PRN (17:00)
[2020-06-12] MEDS ORDERED: LORazepam 2 MG/ML, 1ML IV PRN ×2 (17:00)
[2020-06-12] MEDS ORDERED: BISACODYL 10 MG SUPP PR PRN (17:00)
[2020-06-12] MEDS ORDERED: POLYETHYLENE GLYCOL 17 GM PACKET PO PRN (17:00)
[2020-06-12] MEDS ORDERED: ONDANSETRON 2MG/ML, 2ML IVPush PRN (17:00)
[2020-06-12] MEDS ORDERED: LABETALOL 5MG/ML, 20ML IVPush PRN (17:00)
[2020-06-12] MEDS ORDERED: LORazepam 0.5MG TABLET PO PRN (17:00)
[2020-06-12] MEDS ORDERED: MAALOX/HYOSCYAMINE/LIDOCAINE 45 ML BTL PO PRN (17:00)
[2020-06-12] MEDS ORDERED: DOCUSATE 100 MG CAPSULE PO PRN (17:00)
[2020-06-12] MEDS: SODIUM CHLORIDE 0.9% 1,000 ML IV SCH (17:00)
--- NOTE | 2020-06-12 17:08 | NUR ---
MEDICATED PER MAR FOR CONTINUING TREMORS AND TACHYCARDIA.
[2020-06-12] MEDS ORDERED: ENOXAPARIN 40 MG/0.4 ML ONE (17:44)
[2020-06-12] MEDS ORDERED: CHLORDIAZEPOXIDE 25 MG CAPSULE ONE (17:45)
[2020-06-12] MEDS: CHLORDIAZEPOXIDE 25 MG CAPSULE PO SCH ×2 (17:50→23:45)
[2020-06-12] MEDS: ENOXAPARIN 40 MG/0.4 ML SQ SCH (17:50)
--- NOTE | 2020-06-12 17:54 | NUR ---
PT MEDITCATED PER NOV. PT DENYING CHEST PAIN AT THIS TIME. PT ATE MOST OF HIS DINNER TRAY.
--- NOTE | 2020-06-12 18:09 | NUR ---
PT EXHIBTING EPISODES OF CONFUSION. WHEN ASKED WHERE HE WAS HE INITIALLY STATED "HOSPITAL" HOWEVER, LATER IN CONVERSATION HE ASKED WHERE HE WAS. PT REMAINS TACHYCARDIAC. LIGHTS OFF IN ROOM AND DOOR SHUT TO MINIMIZE STIMULATION.
--- NOTE | 2020-06-12 18:18 | NUR ---
VOICE MAIL LEFT FOR PROVIDER REGARDING FLUIDS ON NOV AND PT'S CONTINUING TACHYCARDIA.
[2020-06-12] MEDS ORDERED: MAGNESIUM SULFATE 1 GM, FOLIC ACID 1 MG, THIAMINE 200 MG, MVI ADULT 10 ML in D5%-0.9% N... IV SCH (19:00)
--- NOTE | 2020-06-12 19:00 | NUR ---
REPORT GIVEN TO MANE TREJO.
--- NOTE | 2020-06-12 19:40 | NUR ---
Assumed care of pt. Pt unchanged per previous shift RN. Pt responsive to verbal stimuli. A&o x3, mild delayed responses noted. Pt denies chest pain. Denies SOB. Remains on tele. Sinus tach to 110s noted on monitor. O2 remains high 90s RA. Weakness noted in all extremities. Denies numbness/tingling. PERRLA.
[2020-06-12 21:51] LABS: TROPONIN I < 0.015 ng/mL (0.000-0.045)
--- NOTE | 2020-06-12 22:23 | NUR ---
Report given to Corina GILLIAM. Per inpatient RN, room is in the process of being cleaned
[2020-06-12 23:02] VITALS: BP 141/92
[2020-06-12] MEDS: METOPROLOL TARTRATE 50 MG TAB PO SCH (23:45)
[2020-06-12] MEDS: ATORVASTATIN 40 MG TABLET PO SCH (23:45)
[2020-06-13 01:18] VITALS: BP 136/87
[2020-06-13 03:06] LABS: BASOPHILS % (AUTO) 1 % (0-1); EOSINOPHILS % (AUTO) 4 % (1-7); LYMPHOCYTES % (AUTO) 51 % (22-44); MEAN CORPUSCULAR HEMOGLOBIN 32.2 pg (27.5-34.5); MEAN CORPUSCULAR HGB CONC 33.7 g/dL (33.2-36.2); MEAN PLATELET VOLUME 7.9 fL (7.4-10.4); MONOCYTES % (AUTO) 11 % (2-9); NEUTROPHILS % (AUTO) 33 % (42-75); PLATELET COUNT 84 x10^3/uL (130-400); RED BLOOD COUNT 4.03 x10^6/uL (4.38-5.82); RED CELL DISTRIBUTION WIDTH 13.1 % (9.4-14.8)
[2020-06-13 03:14] LABS: ALANINE AMINOTRANSFERASE 41 U/L (12-78); ALBUMIN 2.8 g/dL (3.4-5.0); ANION GAP 4 mmol/L (5-15); CALCIUM 8.1 mg/dL (8.5-10.1); CHLORIDE 116 mmol/L (98-107)
[2020-06-13] MEDS: SODIUM CHLORIDE 0.9% 1,000 ML IV SCH (03:14)
[2020-06-13 03:17] LABS: ALKALINE PHOSPHATASE 70 U/L (45-117); CHOL/HDL RATIO 1.7; CHOLESTEROL, TOTAL 105 mg/dL (140-239); HDL CHOL % 59 % (26-37); HDL CHOLESTEROL (DIRECT) 62 mg/dL (40-60); LDL CHOLESTEROL,CALCULATED 23 mg/dL (54-169); LDL/HDL RATIO 0.4 (0.5-3.0); TOTAL PROTEIN 5.3 g/dL (6.4-8.2); TRIGLYCERIDES 98 mg/dL (50-200); TROPONIN I < 0.015 ng/mL (0.000-0.045); VLDL CHOLESTEROL 20 mg/dL (0-25)
[2020-06-13 03:53] LABS: MICROSCOPIC NOT IND
[2020-06-13 04:11] LABS: AMPHETAMINE SCREEN, URINE Negative (Negative); BARBITURATE SCREEN, URINE Negative (Negative); BENZODIAZEPINE SCREEN, URINE Positive (Negative); CANNABINOID SCREEN, URINE Negative (Negative); COCAINE SCREEN, URINE Negative (Negative); METHADONE SCREEN, URINE Negative (Negative); OPIATE SCREEN, URINE Negative (Negative)
[2020-06-13 04:37] LABS: MD SCAN
[2020-06-13] MEDS: CHLORDIAZEPOXIDE 25 MG CAPSULE PO SCH ×2 (05:02→11:58)
[2020-06-13 06:37] VITALS: BP 120/77
[2020-06-13] MEDS: ISOSORBIDE MONONITRATE ER 30 MG TABLET PO SCH (08:30)
[2020-06-13] MEDS: PANTOPRAZOLE 20MG TABLET PO SCH (08:31)
[2020-06-13] MEDS: ASPIRIN 81 MG TABLET EC PO SCH (08:31)
[2020-06-13] MEDS: METOPROLOL TARTRATE 50 MG TAB PO SCH ×2 (08:31→20:02)
[2020-06-13 12:01] VITALS: BP 108/72
[2020-06-13] MEDS: LORazepam 2 MG/ML, 1ML IV PRN (15:20)
[2020-06-13] MEDS: CHLORDIAZEPOXIDE 10 MG CAPSULE PO SCH ×2 (16:02→23:20)
[2020-06-13] MEDS: ENOXAPARIN 40 MG/0.4 ML SQ SCH (16:06)
[2020-06-13] MEDS: LORazepam 1MG TABLET PO PRN ×2 (17:43→20:02)
[2020-06-13 18:46] VITALS: BP 112/76
[2020-06-13] MEDS: THIAMINE 100MG TABLET PO SCH (20:02)
[2020-06-13] MEDS: ATORVASTATIN 40 MG TABLET PO SCH (20:02)
[2020-06-14] MEDS: LORazepam 2 MG/ML, 1ML IV PRN ×5 (00:43→11:19)
[2020-06-14 01:10] VITALS: BP 121/84
[2020-06-14 03:49] LABS: BASOPHILS % (AUTO) 1 % (0-1); EOSINOPHILS % (AUTO) 5 % (1-7); LYMPHOCYTES % (AUTO) 35 % (22-44); MEAN CORPUSCULAR HEMOGLOBIN 32.2 pg (27.5-34.5); MEAN CORPUSCULAR HGB CONC 33.7 g/dL (33.2-36.2); MEAN PLATELET VOLUME 8.6 fL (7.4-10.4); MONOCYTES % (AUTO) 10 % (2-9); NEUTROPHILS % (AUTO) 50 % (42-75); PLATELET COUNT 67 x10^3/uL (130-400); RED BLOOD COUNT 4.37 x10^6/uL (4.38-5.82); RED CELL DISTRIBUTION WIDTH 13.2 % (9.4-14.8)
[2020-06-14 04:04] LABS: ALBUMIN 3.1 g/dL (3.4-5.0); CALCIUM 8.6 mg/dL (8.5-10.1); CHLORIDE 113 mmol/L (98-107)
[2020-06-14 04:07] LABS: ALANINE AMINOTRANSFERASE 40 U/L (12-78); ALKALINE PHOSPHATASE 81 U/L (45-117); ANION GAP 6 mmol/L (5-15); BILIRUBIN,TOTAL 0.8 mg/dL (0.2-1.0); CREATININE 0.64 mg/dL (0.7-1.3)
[2020-06-14] MEDS: CHLORDIAZEPOXIDE 10 MG CAPSULE PO SCH (04:43)
[2020-06-14 05:39] LABS: MD SCAN
[2020-06-14] MEDS ORDERED: POTASSIUM CHLORIDE 20 MEQ TAB.ER.PRT PO ONE (08:00)
[2020-06-14 08:03] VITALS: BP 155/110
[2020-06-14] MEDS: ASPIRIN 81 MG TABLET EC PO SCH (08:36)
[2020-06-14] MEDS: MULTIVITAMIN 1 TABLET PO SCH (08:36)
[2020-06-14] MEDS: THIAMINE 100MG TABLET PO SCH ×2 (08:36→20:53)
[2020-06-14] MEDS: METOPROLOL TARTRATE 50 MG TAB PO SCH ×2 (08:36→20:53)
[2020-06-14] MEDS: FOLIC ACID 1 MG TABLET PO SCH (08:36)
[2020-06-14] MEDS: PANTOPRAZOLE 20MG TABLET PO SCH (08:36)
[2020-06-14] MEDS: ISOSORBIDE MONONITRATE ER 30 MG TABLET PO SCH (08:37)
[2020-06-14] MEDS: LORazepam 1MG TABLET PO PRN (08:53)
[2020-06-14 11:03] VITALS: BP 127/87
[2020-06-14] MEDS: CHLORDIAZEPOXIDE 25 MG CAPSULE PO SCH ×3 (11:10→23:36)
[2020-06-14 12:34] VITALS: BP 142/93
[2020-06-14] MEDS: ENOXAPARIN 40 MG/0.4 ML SQ SCH (17:29)
[2020-06-14 18:44] VITALS: BP 110/75
[2020-06-14] MEDS: ATORVASTATIN 40 MG TABLET PO SCH (20:53)
[2020-06-15 01:27] VITALS: BP 139/97
[2020-06-15] MEDS: CHLORDIAZEPOXIDE 25 MG CAPSULE PO SCH ×2 (06:06→13:19)
[2020-06-15 06:50] LABS: ANION GAP 7 mmol/L (5-15); CALCIUM 8.7 mg/dL (8.5-10.1); CHLORIDE 110 mmol/L (98-107); CREATININE 0.65 mg/dL (0.7-1.3)
[2020-06-15 06:54] LABS: BASOPHILS % (AUTO) 1 % (0-1); EOSINOPHILS % (AUTO) 5 % (1-7); LYMPHOCYTES % (AUTO) 34 % (22-44); MEAN CORPUSCULAR HEMOGLOBIN 32.1 pg (27.5-34.5); MEAN CORPUSCULAR HGB CONC 33.3 g/dL (33.2-36.2); MONOCYTES % (AUTO) 12 % (2-9); NEUTROPHILS % (AUTO) 49 % (42-75); PLATELET COUNT 77 x10^3/uL (130-400); RED BLOOD COUNT 4.37 x10^6/uL (4.38-5.82); RED CELL DISTRIBUTION WIDTH 13.6 % (9.4-14.8)
[2020-06-15 07:02] LABS: MD NO
[2020-06-15] MEDS ORDERED: POTASSIUM CHLORIDE 20 MEQ TAB.ER.PRT PO ONE (08:00)
[2020-06-15 08:12] VITALS: BP 107/102
[2020-06-15 08:19] VITALS: BP 101/71
[2020-06-15 11:20] VITALS: BP 109/77
[2020-06-15] MEDS: PANTOPRAZOLE 20MG TABLET PO SCH (11:26)
[2020-06-15] MEDS: ASPIRIN 81 MG TABLET EC PO SCH (11:26)
[2020-06-15] MEDS: METOPROLOL TARTRATE 50 MG TAB PO SCH ×2 (11:27→21:28)
[2020-06-15] MEDS: MULTIVITAMIN 1 TABLET PO SCH (11:27)
[2020-06-15] MEDS: FOLIC ACID 1 MG TABLET PO SCH (11:27)
[2020-06-15] MEDS: THIAMINE 100MG TABLET PO SCH ×2 (11:28→21:29)
[2020-06-15] MEDS: ISOSORBIDE MONONITRATE ER 30 MG TABLET PO SCH (11:28)
[2020-06-15 12:17] VITALS: BP 108/79
[2020-06-15] MEDS: ENOXAPARIN 40 MG/0.4 ML SQ SCH (17:46)
[2020-06-15 19:52] VITALS: BP 101/67
[2020-06-15] MEDS: ATORVASTATIN 40 MG TABLET PO SCH (21:29)
[2020-06-16 02:37] VITALS: BP 100/57
[2020-06-16] MEDS: ACETAMINOPHEN 325 MG TABLET PO PRN (04:09)
[2020-06-16 06:11] LABS: ALBUMIN 3.2 g/dL (3.4-5.0); ANION GAP 5 mmol/L (5-15); CHLORIDE 109 mmol/L (98-107)
[2020-06-16 06:14] LABS: ALANINE AMINOTRANSFERASE 41 U/L (12-78); ALKALINE PHOSPHATASE 79 U/L (45-117); BILIRUBIN,TOTAL 0.5 mg/dL (0.2-1.0); CREATININE 0.86 mg/dL (0.7-1.3); TOTAL PROTEIN 6.3 g/dL (6.4-8.2)
[2020-06-16 06:56] VITALS: BP 102/72
[2020-06-16] MEDS: ISOSORBIDE MONONITRATE ER 30 MG TABLET PO SCH (10:19)
[2020-06-16] MEDS: ASPIRIN 81 MG TABLET EC PO SCH (10:20)
[2020-06-16] MEDS: THIAMINE 100MG TABLET PO SCH ×2 (10:20→21:00)
[2020-06-16] MEDS: MULTIVITAMIN 1 TABLET PO SCH (10:20)
[2020-06-16] MEDS: METOPROLOL TARTRATE 50 MG TAB PO SCH ×2 (10:20→21:22)
[2020-06-16] MEDS: FOLIC ACID 1 MG TABLET PO SCH (10:20)
[2020-06-16] MEDS: PANTOPRAZOLE 20MG TABLET PO SCH (10:21)
[2020-06-16 12:35] VITALS: BP 96/63
[2020-06-16] MEDS: ENOXAPARIN 40 MG/0.4 ML SQ SCH (17:21)
[2020-06-16 19:12] VITALS: BP 102/68
[2020-06-16] MEDS: ATORVASTATIN 40 MG TABLET PO SCH (21:22)
[2020-06-17 02:19] VITALS: BP 113/79
[2020-06-17 07:56] VITALS: BP 108/76
[2020-06-17] MEDS: METOPROLOL TARTRATE 50 MG TAB PO SCH ×2 (07:59→20:14)
[2020-06-17] MEDS: MULTIVITAMIN 1 TABLET PO SCH (07:59)
[2020-06-17] MEDS: THIAMINE 100MG TABLET PO SCH ×2 (07:59→20:14)
[2020-06-17] MEDS: ASPIRIN 81 MG TABLET EC PO SCH (07:59)
[2020-06-17] MEDS: FOLIC ACID 1 MG TABLET PO SCH (07:59)
[2020-06-17] MEDS: PANTOPRAZOLE 20MG TABLET PO SCH (07:59)
[2020-06-17] MEDS: ISOSORBIDE MONONITRATE ER 30 MG TABLET PO SCH (08:00)
[2020-06-17 12:28] VITALS: BP 94/66
[2020-06-17] MEDS: ENOXAPARIN 40 MG/0.4 ML SQ SCH (16:24)
[2020-06-17 19:43] VITALS: BP 105/65
[2020-06-17] MEDS: ATORVASTATIN 40 MG TABLET PO SCH (20:14)
[2020-06-18 01:16] VITALS: BP 115/82
[2020-06-18 06:53] VITALS: BP 108/75
[2020-06-18] MEDS ORDERED: LORazepam 2 MG/ML, 1ML IVPush PRN (07:30)
[2020-06-18] MEDS: MULTIVITAMIN 1 TABLET PO SCH (08:10)
[2020-06-18] MEDS: METOPROLOL TARTRATE 50 MG TAB PO SCH ×2 (08:10→21:20)
[2020-06-18] MEDS: FOLIC ACID 1 MG TABLET PO SCH (08:11)
[2020-06-18] MEDS: ISOSORBIDE MONONITRATE ER 30 MG TABLET PO SCH (08:11)
[2020-06-18] MEDS: THIAMINE 100MG TABLET PO SCH ×2 (08:11→21:20)
[2020-06-18] MEDS: PANTOPRAZOLE 20MG TABLET PO SCH (08:11)
[2020-06-18] MEDS: ASPIRIN 81 MG TABLET EC PO SCH (08:11)
[2020-06-18 13:07] VITALS: BP 94/62
[2020-06-18] MEDS: ENOXAPARIN 40 MG/0.4 ML SQ SCH (17:30)
[2020-06-18 21:08] VITALS: BP 111/72
[2020-06-18] MEDS: ATORVASTATIN 40 MG TABLET PO SCH (21:20)
[2020-06-18] MEDS: ACETAMINOPHEN 325 MG TABLET PO PRN (21:20)
[2020-06-19 07:20] LABS: BASOPHILS % (AUTO) 1 % (0-1); EOSINOPHILS % (AUTO) 4 % (1-7); LYMPHOCYTES % (AUTO) 44 % (22-44); MEAN CORPUSCULAR HEMOGLOBIN 31.8 pg (27.5-34.5); MEAN CORPUSCULAR HGB CONC 33.2 g/dL (33.2-36.2); MEAN PLATELET VOLUME 8.1 fL (7.4-10.4); MONOCYTES % (AUTO) 16 % (2-9); NEUTROPHILS % (AUTO) 35 % (42-75); PLATELET COUNT 97 x10^3/uL (130-400); RED BLOOD COUNT 4.03 x10^6/uL (4.38-5.82); RED CELL DISTRIBUTION WIDTH 13.3 % (9.4-14.8)
[2020-06-19 07:25] LABS: ALANINE AMINOTRANSFERASE 38 U/L (12-78); ALBUMIN 3.1 g/dL (3.4-5.0); ANION GAP 6 mmol/L (5-15); CALCIUM 8.9 mg/dL (8.5-10.1); CHLORIDE 114 mmol/L (98-107)
[2020-06-19 07:27] LABS: ALKALINE PHOSPHATASE 69 U/L (45-117); BILIRUBIN,TOTAL 0.4 mg/dL (0.2-1.0); TOTAL PROTEIN 6.1 g/dL (6.4-8.2)
[2020-06-19 07:51] LABS: MD SCAN
[2020-06-19] MEDS: ISOSORBIDE MONONITRATE ER 30 MG TABLET PO SCH (08:50)
[2020-06-19] MEDS: PANTOPRAZOLE 20MG TABLET PO SCH (08:51)
[2020-06-19] MEDS: THIAMINE 100MG TABLET PO SCH ×2 (08:51→20:15)
[2020-06-19] MEDS: FOLIC ACID 1 MG TABLET PO SCH (08:51)
[2020-06-19] MEDS: METOPROLOL TARTRATE 50 MG TAB PO SCH ×2 (08:51→20:15)
[2020-06-19] MEDS: MULTIVITAMIN 1 TABLET PO SCH (08:51)
[2020-06-19] MEDS: ASPIRIN 81 MG TABLET EC PO SCH (08:52)
[2020-06-19 08:54] VITALS: BP 96/56
[2020-06-19 16:05] VITALS: BP 112/79
[2020-06-19] MEDS: ENOXAPARIN 40 MG/0.4 ML SQ SCH (17:16)
[2020-06-19 19:16] VITALS: BP 128/80
[2020-06-19] MEDS: ATORVASTATIN 40 MG TABLET PO SCH (20:15)
[2020-06-20 00:36] VITALS: BP 101/57
[2020-06-20 07:25] VITALS: BP 102/70
[2020-06-20 07:57] LABS: BASOPHILS % (AUTO) 1 % (0-1); EOSINOPHILS % (AUTO) 4 % (1-7); LYMPHOCYTES % (AUTO) 44 % (22-44); MEAN CORPUSCULAR HEMOGLOBIN 32.2 pg (27.5-34.5); MEAN CORPUSCULAR HGB CONC 33.1 g/dL (33.2-36.2); MONOCYTES % (AUTO) 19 % (2-9); NEUTROPHILS % (AUTO) 32 % (42-75); PLATELET COUNT 122 x10^3/uL (130-400); RED BLOOD COUNT 3.96 x10^6/uL (4.38-5.82); RED CELL DISTRIBUTION WIDTH 13.5 % (9.4-14.8)
[2020-06-20 08:36] LABS: MD SCAN
[2020-06-20] MEDS: THIAMINE 100MG TABLET PO SCH ×2 (10:01→20:09)
[2020-06-20] MEDS: FOLIC ACID 1 MG TABLET PO SCH (10:01)
[2020-06-20] MEDS: ISOSORBIDE MONONITRATE ER 30 MG TABLET PO SCH (10:01)
[2020-06-20] MEDS: MULTIVITAMIN 1 TABLET PO SCH (10:01)
[2020-06-20] MEDS: PANTOPRAZOLE 20MG TABLET PO SCH (10:01)
[2020-06-20] MEDS: ASPIRIN 81 MG TABLET EC PO SCH (10:02)
[2020-06-20] MEDS: METOPROLOL TARTRATE 50 MG TAB PO SCH ×2 (10:02→20:10)
[2020-06-20 13:03] VITALS: BP 100/68
[2020-06-20] MEDS: ENOXAPARIN 40 MG/0.4 ML SQ SCH (17:00)
[2020-06-20] MEDS: ATORVASTATIN 40 MG TABLET PO SCH (20:09)
[2020-06-20] MEDS: QUETIAPINE 25MG TABLET PO PRN (20:09)
[2020-06-20 20:19] VITALS: BP 118/78
[2020-06-21 01:43] VITALS: BP 98/59
[2020-06-21 06:47] VITALS: BP 121/78
[2020-06-21] MEDS: ISOSORBIDE MONONITRATE ER 30 MG TABLET PO SCH (08:33)
[2020-06-21] MEDS: FOLIC ACID 1 MG TABLET PO SCH (08:33)
[2020-06-21] MEDS: MULTIVITAMIN 1 TABLET PO SCH (08:33)
[2020-06-21] MEDS: ASPIRIN 81 MG TABLET EC PO SCH (08:33)
[2020-06-21] MEDS: METOPROLOL TARTRATE 50 MG TAB PO SCH ×2 (08:33→20:32)
[2020-06-21] MEDS: THIAMINE 100MG TABLET PO SCH ×2 (08:34→20:32)
[2020-06-21] MEDS: PANTOPRAZOLE 20MG TABLET PO SCH (08:34)
[2020-06-21] MEDS: ENOXAPARIN 40 MG/0.4 ML SQ SCH (08:38)
[2020-06-21 12:14] VITALS: BP 100/70
[2020-06-21 18:56] VITALS: BP 115/81
[2020-06-21] MEDS: ATORVASTATIN 40 MG TABLET PO SCH (20:32)
[2020-06-21] MEDS: QUETIAPINE 25MG TABLET PO PRN (21:00)
[2020-06-22 00:31] VITALS: BP 116/79
[2020-06-22] MEDS: ACETAMINOPHEN 325 MG TABLET PO PRN (00:57)
[2020-06-22 06:51] VITALS: BP 117/78
[2020-06-22] MEDS: ENOXAPARIN 40 MG/0.4 ML SQ SCH (09:00)
[2020-06-22] MEDS: ISOSORBIDE MONONITRATE ER 30 MG TABLET PO SCH (10:21)
[2020-06-22] MEDS: THIAMINE 100MG TABLET PO SCH ×2 (10:21→20:16)
[2020-06-22] MEDS: MULTIVITAMIN 1 TABLET PO SCH (10:21)
[2020-06-22] MEDS: PANTOPRAZOLE 20MG TABLET PO SCH (10:22)
[2020-06-22] MEDS: FOLIC ACID 1 MG TABLET PO SCH (10:22)
[2020-06-22] MEDS: ASPIRIN 81 MG TABLET EC PO SCH (10:22)
[2020-06-22] MEDS: METOPROLOL TARTRATE 50 MG TAB PO SCH ×2 (10:22→20:17)
[2020-06-22 13:07] VITALS: BP 110/79
[2020-06-22 18:36] VITALS: BP 117/80
[2020-06-22] MEDS: ATORVASTATIN 40 MG TABLET PO SCH (20:16)
[2020-06-22] MEDS: QUETIAPINE 25MG TABLET PO PRN (21:08)
[2020-06-23 07:47] VITALS: BP 118/69
[2020-06-23] MEDS: ASPIRIN 81 MG TABLET EC PO SCH (08:04)
[2020-06-23] MEDS: PANTOPRAZOLE 20MG TABLET PO SCH (08:04)
[2020-06-23] MEDS: THIAMINE 100MG TABLET PO SCH (08:04)
[2020-06-23] MEDS: MULTIVITAMIN 1 TABLET PO SCH (08:04)
[2020-06-23] MEDS: FOLIC ACID 1 MG TABLET PO SCH (08:04)
[2020-06-23] MEDS: METOPROLOL TARTRATE 50 MG TAB PO SCH (08:04)
[2020-06-23] MEDS: ISOSORBIDE MONONITRATE ER 30 MG TABLET PO SCH (08:04)
[2020-06-23] MEDS: ENOXAPARIN 40 MG/0.4 ML SQ SCH (08:05)
[2020-06-23 13:02] VITALS: BP 110/74
== END 2020-06-23 14:00 | disposition home or self-care (01) | DRG 896 ==
LOC: ED 15:27 → EDIP 17:08 → 4WST 22:47 → 3N 06-17 17:35 → DCLOUNGE 06-23 13:44
PROVIDERS: ADMIT Family Medicine; ATTEND Hospitalist
DX: F10.231 Alcohol dependence with withdrawal delirium (principal); G93.41 Metabolic encephalopathy; D61.818 Other pancytopenia; E78.5 Hyperlipidemia, unspecified; I11.0 Hypertensive heart disease with heart failure; E87.6 Hypokalemia; I25.10 Atherosclerotic heart disease of native coronary artery without angina pectoris; I50.9 Heart failure, unspecified; Z78.1 Physical restraint status; Z95.5 Presence of coronary angioplasty implant and graft; Z79.899 Other long term (current) drug therapy
CPT/HCPCS: 36415; 96361; 96374; 96375; 96376; 99285; J7042; 71045; 80048; 80053; 80061; 80307; 81003; 83735; 84100; 84443; 84484; 85025; 85610; 93005; G0378; J1650; J3411; J3475; Q0162; J2060; J7030